=== PATIENT | male | born 1990 | race Hispanic/Latino ===

== ENCOUNTER 2016-08-05 15:40 | Emergency (ER) | payer OTHER ==
[~2016-08-05] VITALS: Ht 165.1 cm; Wt 86.2 kg
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
[2016-08-05] MEDS ORDERED: HYDROcodone/APAP 7.5 MG/325 MG (LORTAB, LORCET PLUS) TABLET PO STA (20:57)
[2016-08-06] MEDS ORDERED: CYCL10TA9 PO (00:22)
[2016-08-06] MEDS ORDERED: HYDR-3816 PO (00:22)
[2016-08-06 00:32] VITALS: BP 122/62
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
== END 2016-08-06 00:32 | disposition home or self-care (01) ==
LOC: ER 15:43
DX: S00.03XA Contusion of scalp, initial encounter (principal); S50.12XA Contusion of left forearm, initial encounter; R04.0 Epistaxis; V43.52XA Car driver injured in collision with other type car in traffic accident, initial encounter; Y99.8 Other external cause status
CPT/HCPCS: 70450; 73090; 99283